=== PATIENT | female | born 1950 | race Caucasian/White ===

== ENCOUNTER 2017-07-14 16:03 | Emergency (ER) | payer OTHER ==
[~2017-07-14] VITALS: Ht 165.1 cm; Wt 82.0 kg
[2017-07-14 16:06] VITALS: BP 127/77; PULSE 70; RESP 18; TEMP 97.7; O2SAT 98
--- NOTE | 2017-07-14 16:43 | PD ---
HPI Chief Complaint: Musculoskeletal Complaint Time Seen by Provider: 16:25 Travel History International Travel<30 days: No Contact w/Intl Traveler<30days: No Traveled to known affect area: No History of Present Illness HPI 66-year-old female here for evaluation of left shoulder and left wrist pain status post fall. She reports that she fell forward when her stopped there RV which caused her to lose her balance falling forward onto a nearby seat and then fell backwards onto the ground. She is unsure if she hit her head. Patient is anticoagulated. She denies loss of consciousness. She denies headache. She believes her shoulder and wrist were injured when she attempted to brace her fall into the seat. She denies chest pain, shortness breath, abdominal pain, paresthesia or weakness in the extremity. PFSH Past Medical History Hx Anticoagulant Therapy: Yes (effiant) Cancer: Yes (BREAST) High Cholesterol: Yes Coronary Artery Disease: Yes Diabetes: Yes Patient Takes Glucophage: Yes Diminished Hearing: No Hypertension: Yes Tetanus Vaccination: < 5 Years ?: Not Past Surgical History Cholecystectomy: Yes Coronary Stent: Yes (3) Eye Surgery: Yes (BILAT. CATARACT REMOVAL) Hysterectomy: Yes Mastectomy: Yes (LEFT) Social History Alcohol Use: No Tobacco Use: No Substance Use: No Allergies-Medications (Allergen,Severity, Reaction): Coded Allergies: Sulfa (Sulfonamide Antibiotics) (Verified Allergy, Unknown, Anaphylaxis, 07/14/17) Reported Meds & Prescriptions Reported Meds & Active Scripts Active Flexeril (Cyclobenzaprine HCl) 10 Mg Tab 10 Mg PO TID Reported Fenofibrate 40 Mg Tab Unknown Dose PO DAILY Anastrozole 1 Mg Tab 1 Mg PO DAILY Pravastatin 10 Mg Tab Unknown Dose PO DAILY Aspirin Children's (Aspirin) 81 Mg Chew 81 Mg CHEW DAILY Amitiza (Lubiprostone) 8 Mcg Cap Unknown Dose PO BID [Brintellix] Unknown Dose PO DAILY Metformin (Metformin HCl) 500 Mg Tab 500 Mg PO BIDPC Glyburide 1.25 Mg Tab Unknown Dose PO DAILY Take with meals at the same time each day Effient (Prasugrel) 5 Mg Tab 5 Mg PO DAILY Ranexa ER 12 HR (Ranolazine) 500 Mg Tab 500 Mg PO BID Preservision Areds (Multiple Vitamins W/ Minerals) 1 Tab 1 Tab PO DAILY Isosorbide Mononitrate 10 Mg Tab Unknown Dose PO BID Take 2 doses 7 hours apart. Metoprolol Tartrate 25 Mg Tab Unknown Dose PO BID [Mag Oxide] Unknown Dose PO BID Lyrica (Pregabalin) 25 Mg Cap Unknown Dose PO BID Review of Systems Except as stated in HPI: all other systems reviewed are Neg Physical Exam Narrative GENERAL: Alert well-appearing female in mild distress holding her left upper extremity slightly flexed against her body. SKIN: Focused skin assessment warm/dry. HEAD: Atraumatic. Normocephalic. EYES: Pupils equal and round. No scleral icterus. No injection or drainage. ENT: No nasal bleeding or discharge. Mucous membranes pink and moist. NECK: Trachea midline. No JVD. No cervical midline tenderness CARDIOVASCULAR: Regular rate and rhythm. No murmur appreciated. No chest wall tenderness. No crepitus. RESPIRATORY: No accessory muscle use. Clear to auscultation. Breath sounds equal bilaterally. GASTROINTESTINAL: Abdomen soft, non-tender, nondistended. Hepatic and splenic margins not palpable. MUSCULOSKELETAL: No obvious deformities. No clubbing. No cyanosis. No edema. Left upper extremity: Arm is being held in slight flexion against the body. Tenderness over the humeral head and left wrist. No deformity. 2+ brachial and radial pulse. Normal sensation. Brisk cap refill. BACK: No CVA tenderness. No rash. No point tenderness on palpation of the spine. NEUROLOGICAL: Awake and alert. No obvious cranial nerve deficits. Motor grossly within normal limits. Normal speech. PSYCHIATRIC: Appropriate mood and affect; insight and judgment normal. Data Data Last Documented VS Vital Signs Date Time Temp Pulse Resp B/P (MAP) Pulse Ox O2 Delivery O2 Flow Rate FiO2 07/14/17 16:06 97.7 70 18 127/77 (94) [address] Brain W/O Iv Contrast(Rout) (07/14/17 ) Wrist, Complete ([id number]) (07/14/17 ) Shoulder, Limited(2vws) (07/14/17 ) Splint Or Brace Apply/Monitor (07/14/17 17:46) Ketorolac Inj (Toradol Inj) (07/14/17 18:00) MDM Medical Decision Making Medical Screen Exam Complete: Yes Emergency Medical Condition: Yes Differential Diagnosis Shoulder fracture, shoulder dislocation, wrist fracture, wrist sprain, ICH Narrative Course 66-year-old female here with left shoulder and left wrist pain after falling in her RV prior to arrival. Patient is anticoagulated and reports possible head injury. No loss of consciousness. No headache currently. On exam is no deformity noted to the left upper extremity. Extremities are intact. She has no chest wall or abdominal pain. She has no cervical, thoracic, lumbar spine tenderness. CT brain: No abnormality X-ray left shoulder: No fracture or dislocation X-ray left wrist: No fracture dislocation Imaging results were discussed with patient. She is reporting some left upper trapezius muscle spasming. Patient will be put in a left arm sling for comfort , given a shot of Toradol, discharged home with few days' worth of muscle relaxers for muscle spasm. Diagnosis Primary Impression: Left wrist sprain Qualified Codes: S63.502A - Unspecified sprain of left wrist, initial encounter Additional Impression: Shoulder injury Qualified Codes: S49.92XA - Unspecified injury of left shoulder and upper arm , initial encounter Referrals: Primary Care Physician Additional Instructions: Take [id number] Tylenol as needed for pain. Use the sling to immobilize the left upper extremity until pain improves. Follow-up with her primary doctor. Return to emergency department if he developed new or worsening symptoms. Scripts Cyclobenzaprine (Flexeril) 10 Mg Tab 10 MG PO TID for Muscle Spasm, #15 TAB 0 Refills Prov: Taylor Dove 07/14/17 Disposition: 01 DISCHARGE HOME Condition: Stable Taylor Dove Jul 14, 2017 16:43
[2017-07-14] MEDS ORDERED: MAG OXIDE PO (16:45)
[2017-07-14] MEDS ORDERED: BRINTELLIX PO (16:45)
[2017-07-14] MEDS ORDERED: ANAS1TAB PO (16:45)
[2017-07-14] MEDS ORDERED: METO25TA3 PO (16:45)
[2017-07-14] MEDS ORDERED: ISOS10TA3 PO (16:45)
[2017-07-14] MEDS ORDERED: GLYB1.253 PO (16:45)
[2017-07-14] MEDS ORDERED: RANO500 PO (16:45)
[2017-07-14] MEDS ORDERED: METF500T PO (16:45)
[2017-07-14] MEDS ORDERED: OCUVTAB4 PO (16:45)
[2017-07-14] MEDS ORDERED: AMIT8CAP6 PO (16:45)
[2017-07-14] MEDS ORDERED: PRAS5TAB PO (16:45)
[2017-07-14] MEDS ORDERED: PRAV10TA PO (16:45)
[2017-07-14] MEDS ORDERED: PREG25 PO (16:45)
[2017-07-14] MEDS ORDERED: ASPI81CH7 CHEW (16:45)
[2017-07-14] MEDS ORDERED: FENO1TAB46 PO (16:45)
--- NOTE | 2017-07-14 17:03 | RADRPT ---
EXAM DATE/TIME: 07/14/2017 16:47 [facility] COMPARISON: No previous studies available for comparison. INDICATIONS : Trauma. Fell yesterday and today. RADIATION DOSE: 62.76 CTDIvol (mGy) MEDICAL HISTORY : Carcinoma, breast. Diabetes mellitus type 2. Cardiovascular diseaseHypertension. SURGICAL HISTORY : Mastectomy, left. Cholecystectomy. ENCOUNTER: Initial ACUITY: 1 day PAIN SCALE: 2/10 LOCATION: cranial TECHNIQUE: Multiple contiguous axial images were obtained of the head. Using automated exposure control and adj ustment of the mA and/or kV according to patient size, radiation dose was kept as low as reasonably a chievable to obtain optimal diagnostic quality images. DICOM format image data is available electro nically for review and comparison. FINDINGS: CEREBRUM: The ventricles are normal for age. No evidence of midline shift, mass lesion, hemorrhage or acute in farction. No extra-axial fluid collections are seen. POSTERIOR FOSSA: The cerebellum and brainstem are intact. The 4th ventricle is midline. The cerebellopontine angle i s unremarkable. EXTRACRANIAL: The visualized portion of the orbits is intact. SKULL: The calvaria is intact. No evidence of skull fracture. CONCLUSION: Negative trauma study. Osorio Walker MD on July 14, 2017 at 17:01 Board Certified Radiologist. This report was verified electronically.
--- NOTE | 2017-07-14 17:13 | RADRPT ---
EXAM DATE/TIME: 07/14/2017 16:41 [facility] COMPARISON: No previous studies available for comparison. INDICATIONS : Left shoulder pain post fall. MEDICAL HISTORY : Hypercholesterolemia. Hypertension Carcinoma, breast. CAD, Diabetes SURGICAL HISTORY : Coronary artery stent. Cholecystectomy. Mastectomy, left. Hysterectomy ENCOUNTER: Initial ACUITY: 1 day PAIN SCORE: 10/10 LOCATION: Left upper extremity FINDINGS: Two view examination of the left shoulder demonstrates no evidence of fracture or dislocation. The g lenohumeral and acromioclavicular joints are maintained. There is mild osteopenia. There are surgical clips in the left axilla. CONCLUSION: Osteopenia with no acute fracture or malalignment. Osorio Walker MD on July 14, 2017 at 17:11 Board Certified Radiologist. This report was verified electronically.
--- NOTE | 2017-07-14 17:14 | RADRPT ---
EXAM DATE/TIME: 07/14/2017 16:41 [facility] COMPARISON: No previous studies available for comparison. INDICATIONS : Entire left wrist pain post fall. MEDICAL HISTORY : Hypercholesterolemia. Hypertension Carcinoma, breast. Diabetes, CAD SURGICAL HISTORY : Coronary artery stent. Cholecystectomy. Mastectomy, left. Hysterectomy ENCOUNTER: Initial ACUITY: 1 day PAIN SCORE: 5/10 LOCATION: Left upper extremity FINDINGS: Three view examination of the left wrist demonstrates no soft tissue swelling, dislocation, or fractu re. The carpal bones are in normal alignment. The joint spaces are maintained. There is mild osteop enia. CONCLUSION: Osteopenia with no acute fracture or malalignment. Osorio Walker MD on July 14, 2017 at 17:12 Board Certified Radiologist. This report was verified electronically.
[2017-07-14] MEDS ORDERED: CYCL10TA PO (17:50)
[2017-07-14] MEDS ORDERED: KETOROLAC TROMETHAMINE 60 MG/2 ML (IM) VIAL IM ONE (18:00)
== END 2017-07-14 18:44 | disposition home or self-care (01) ==
LOC: PHED 16:03
DX: S63.502A Unspecified sprain of left wrist, initial encounter (principal); I25.10 Atherosclerotic heart disease of native coronary artery without angina pectoris; W18.39XA Other fall on same level, initial encounter; Z79.01 Long term (current) use of anticoagulants
CPT/HCPCS: 70450; 73030; 73110; 96372; 99285; J1885